=== PATIENT | female | born 1960 | race Caucasian/White ===

== ENCOUNTER 2021-06-30 14:51 | Inpatient (IN) | payer MEDICAID ==
[~2021-06-30] VITALS: Ht 175.3 cm; Wt 51.3 kg
[2021-06-30 15:02] VITALS: BP 107/65
[2021-06-30 15:33] LABS: ABSOLUTE BASOPHILS 0.1 thou/uL (0.0-0.2); ABSOLUTE LYMPHOCYTES 2.1 thou/uL (0.8-5.3); BASOPHILS 1.2 %; EOSINOPHILS 0.3 %; HEMATOCRIT 35.1 % (37.0-47.0); HEMOGLOBIN 12.9 gm/dL (12.0-15.0); LYMPHOCYTES 34.2 %; MCHC 36.7 g/dL (28.0-37.0); MCV 92.7 fL (80.0-100.0); MONOCYTES 15.7 %; MPV 6.6 fl. (7.2-11.1); NUCLEATED RBCS 0 /100WBC; PLATELET COUNT* 290 thou/uL (150-400); POLYS 48.6 %; RBC 3.78 mil/uL (4.20-5.00); RDW-CV 14.3 % (10.5-14.5); WBC 6.1 thou/uL (4.0-11.0)
[2021-06-30 15:44] LABS: CALCIUM 8.5 mg/dL (8.5-10.1); CREATININE 0.8 mg/dL (0.6-1.3)
[2021-06-30 15:46] LABS: POTASSIUM 2.2 mmol/L (3.5-5.1)
[2021-06-30 15:48] LABS: ALBUMIN 3.3 g/dL (3.4-5.0); TOTAL BILIRUBIN 0.4 mg/dL (<0.1-1.0); TOTAL PROTEIN 6.6 g/dL (6.4-8.2)
--- NOTE | 2021-06-30 16:13 | EKG ---
[place] [address] ELECTROCARDIOGRAM REPORT Name: STEPHANIE MARTINEZ Room: [facility]19 ADM IN [facility]#: [id number] Admission: 06/30/21 Attend Phys: Alberto Escobar, Discharge: Date of : 62 Date of Service: 06/30/21 1459 Report #: [id number] THIS REPORT FOR: //name// [facility] ED Test Date: 2021-06-30 Test Time: 14:59:11 Pat Name: STEPHANIE MARTINEZ Department: Room: [facility] Gender: F Learning And Development Coordinator: HENNY : 1960 Requested By: Moses Ballesteros Order Number: [id number] MD: Aki Jackson Measurements Intervals [place] Rate: 80 P: 63 LA: 184 QRS: -41 QRSD: 115 T: 78 QT: 434 QTc: 501 Interpretive Statements Sinus rhythm Nonspecific IVCD with LAD Anteroseptal infarct, age indeterminate Baseline wander in lead(s) V4 No previous ECG available for comparison Electronically Signed On 06-30-2021 16:13:19 CDT by Aki Jackson [email or web address] <ELECTRONICALLY SIGNED> By: Aki Jackson MD, [facility] 06/30/21 1613 1459 1459 Aki Jackson MD, [facility] /EPI
[2021-06-30 16:55] LABS: CALCIUM 7.8 mg/dL (8.5-10.1); CREATININE 0.6 mg/dL (0.6-1.3)
[2021-06-30 17:02] LABS: POTASSIUM 2.1 mmol/L (3.5-5.1)
[2021-06-30 19:47] LABS: CALCIUM 8.1 mg/dL (8.5-10.1); CREATININE 0.7 mg/dL (0.6-1.3)
[2021-06-30 19:53] LABS: POTASSIUM 2.6 mmol/L (3.5-5.1)
[2021-06-30 20:00] VITALS: BP 95/60
[2021-06-30 21:07] LABS: URINE BILIRUBIN NEGATIVE (Negative); URINE BLOOD NEGATIVE (Negative); URINE CLARITY CLEAR; URINE COLOR YELLOW; URINE GLUCOSE-RANDOM NEGATIVE (Negative); URINE KETONES NEGATIVE (Negative); URINE NITRITE-REFLEX NEGATIVE (Negative); URINE PROTEIN NEGATIVE (Negative); URINE SPECIFIC GRAVITY <= 1.005 (1.005-1.030); URINE UROBILINOGEN 0.2 E.U./dl (0.2-1.0)
[2021-06-30 21:09] LABS: URINE LEUKOCYTES-REFLEX 3+ (Negative)
[2021-06-30 21:15] LABS: URINE POTASSIUM-RANDOM 8.8 mmol/L
[2021-06-30 21:18] LABS: CASTS None Seen /LPF (None Seen); CRYSTALS None Seen /LPF (None Seen); SQUAMOUS 0-3 Few /LPF (0-3); URINE RBC 0-2 Rare /HPF (0-2)
[2021-07-01] VITALS (7 sets, daily range): BP systolic 114–137; BP diastolic 73–95
[2021-07-01 01:23] LABS: CALCIUM 8.1 mg/dL (8.5-10.1); CREATININE 0.9 mg/dL (0.6-1.3)
[2021-07-01 01:25] LABS: POTASSIUM 3.9 mmol/L (3.5-5.1)
[2021-07-01 01:29] LABS: ABSOLUTE EOSINOPHILS 0.1 thou/uL (0.0-0.7); ABSOLUTE LYMPHOCYTES 1.8 thou/uL (0.8-5.3); ABSOLUTE MONOCYTES 0.7 thou/uL (0.0-1.2); ABSOLUTE NEUTROPHILS 2.2 thou/uL (1.6-8.1); BASOPHILS 0.8 %; EOSINOPHILS 1.5 %; HEMATOCRIT 31.1 % (37.0-47.0); HEMOGLOBIN 11.4 gm/dL (12.0-15.0); LYMPHOCYTES 36.3 %; MCH 33.8 pg (26.0-34.0); MCHC 36.6 g/dL (28.0-37.0); MCV 92.6 fL (80.0-100.0); MONOCYTES 15.3 %; MPV 6.8 fl. (7.2-11.1); NUCLEATED RBCS 0 /100WBC; POLYS 46.1 %; RBC 3.36 mil/uL (4.20-5.00); WBC 4.9 thou/uL (4.0-11.0)
[2021-07-01 01:33] LABS: PLATELET COUNT* 200 thou/uL (150-400)
--- NOTE | 2021-07-01 04:00 | NUR ---
[facility] PROTOCOL STARTED FOR ALCOHOL WITHDRAW. SEE [facility] FLOWSHEET.
[2021-07-01] MEDS ORDERED: HYDROCODON-ACE1 EAC5 PO (14:41)
[2021-07-01 20:13] LABS: CALCIUM 8.6 mg/dL (8.5-10.1); CREATININE 0.8 mg/dL (0.6-1.3); POTASSIUM 3.9 mmol/L (3.5-5.1)
[2021-07-02 01:16] VITALS: BP 129/81
--- NOTE | 2021-07-02 04:45 | NUR ---
PT REFUSED AM LAB DRAW FROM TOP SCREW
--- NOTE | 2021-07-02 04:45 | NUR ---
PT SPENT SHIFT REQUESTING FOOD AND ATIVAN. SHE GETS UP ON HER OWN. SHE REFUSED AM LABS SO WE DO NOT HAVE CURRENT LABS. SHE IS ALERT AND ORIENTED, ROOM AIR, RECEIVED FLUIDS SCHEDULED. SHE ASKS FOR FOOD AND DRINK ON THE HOUR EVERY HOUR. WILL CONTINUE TO MONITOR.
[2021-07-02 04:57] VITALS: BP 146/99
[2021-07-02 07:57] LABS: ABSOLUTE EOSINOPHILS 0.1 thou/uL (0.0-0.7); ABSOLUTE LYMPHOCYTES 1.1 thou/uL (0.8-5.3); ABSOLUTE MONOCYTES 0.6 thou/uL (0.0-1.2); ABSOLUTE NEUTROPHILS 2.8 thou/uL (1.6-8.1); EOSINOPHILS 1.7 %; HEMOGLOBIN 11.3 gm/dL (12.0-15.0); LYMPHOCYTES 23.7 %; MCH 33.2 pg (26.0-34.0); MCHC 34.3 g/dL (28.0-37.0); MCV 96.8 fL (80.0-100.0); MONOCYTES 13.1 %; MPV 6.9 fl. (7.2-11.1); NUCLEATED RBCS 0 /100WBC; PLATELET COUNT* 187 thou/uL (150-400); POLYS 60.5 %; RDW-CV 14.5 % (10.5-14.5); WBC 4.6 thou/uL (4.0-11.0)
[2021-07-02] MEDS ORDERED: FOLIC ACID1 MG PO (08:05)
[2021-07-02] MEDS ORDERED: VITAMIN B-1100 M2 PO (08:05)
[2021-07-02 08:18] LABS: ALBUMIN 2.6 g/dL (3.4-5.0); CALCIUM 8.7 mg/dL (8.5-10.1); CREATININE 0.7 mg/dL (0.6-1.3); POTASSIUM 4.4 mmol/L (3.5-5.1); TOTAL BILIRUBIN 0.4 mg/dL (<0.1-1.0); TOTAL PROTEIN 5.7 g/dL (6.4-8.2)
[2021-07-02 08:36] VITALS: BP 140/90
[2021-07-02 12:00] VITALS: BP 136/83
--- NOTE | 2021-07-02 14:33 | NUR ---
Pt is A&O. Resides in a motel alone. Independent. No DME. No hx of HH or SNF. Hx of ETOH, CM offered resources, Pt states that she already has a CM in the community, Pt to speak with CM. Pt discharging to home today, no further needs.
--- NOTE | 2021-07-02 14:49 | NUR ---
ASSUMED PT CARE AT 0730. PT IS A&OX4. PT IS UP AD AMI. CONTINENT OF B&B. PT FREQUENTLY REQUESTING MULTIPLE CARTONS OF PUDDING, APPLESAUCE AND OTHER SNACK ITEMS. NS INFUSING AT 75ml PER HR. MEDICATIONS ADMINISTERED ORDERED. PT REFUSING SCD'S. NO EDEMA NOTED. PT VERBALIZES UNDERSTANDING OF SAFETY MEASURES.
--- NOTE | 2021-07-02 16:32 | NUR ---
NEW ORDER TO DISCHARGE PT TO HOME. IV DC'D AND HEART MONITOR REMOVED. ALL BELONGINGS WITH PT. TRANSPORTATION ARRANGED VIA CAB TO TRANSFER PT TO HOME. CAB NOTIFIED AND ENROUTE TO GET PT AT APPROX. 1700.
[2021-07-02 17:57] VITALS: BP 136/83
--- NOTE | 2021-07-04 13:57 | CON ---
[address] [address] CONSULTATION Name: LISA MARTINEZ Room: [address] IN M.R.#: [id number] Admission: 06/30/21 Attend Phys: Alberto Escobar MD Discharge: 07/02/21 Date of : 62 Report #: [id number] THIS REPORT FOR: cc: FARZANA - No family physician/PCP FAM - No family physician/PCP Dusty Gregorio MD ~ DATE OF CONSULTATION: 07/01/2021 REQUESTING PHYSICIAN: Alberto Escobar MD REASON FOR CONSULTATION: Hyponatremia and hypokalemia. HISTORY OF PRESENT ILLNESS: The patient is a 61-year-old female with medical history significant for alcoholism. She presents to the hospital yesterday on 06/30 with symptoms of alcohol intoxication. She was found to be hyponatremic and hypokalemic. Her serum sodium was 113, potassium was 2.2. Is very malnourished, is given fluids. Potassium was replaced and it is improving. Sodium improving appropriately. It is up to 122, suspect 9 points correction over 24 hours and potassium is improving as well; it is 3.9 now. Her BUN and creatinine are normal. She had some elevated blood sugar and her lipase was normal. Her CK is normal. Her urinalysis showed some symptoms of UTI, but she is asymptomatic. SOCIAL HISTORY: Positive for alcoholism. FAMILY HISTORY: Unknown. MEDICATIONS: Prior to admission, unknown. REVIEW OF SYSTEMS: She is much better now, wants to be fed and she wants us to take care of her cat. PHYSICAL EXAMINATION: GENERAL: Awake, alert, oriented. VITAL SIGNS: Blood pressure 114/73, heart rate 81, afebrile. HEENT: Pupils are round. NECK: Supple. LUNGS: Clear. CARDIOVASCULAR: Regular rate. ABDOMEN: Soft. LOWER EXTREMITIES: No edema. ASSESSMENT: 1. Alcoholism. 2[place] [address] CONSULTATION Name: LISA MARTINEZ Room: [address]#: [id number] Admission: 06/30/21 Attend Phys: Alberto Escobar MD Discharge: 07/02/21 Date of : 62 Report #: [id number] 3. Hyponatremia due to poor solute intake. 4. Hypokalemia due to poor intake, resolved. PLAN: Continue normal saline. Follow labs. Discussed with Dr. Escobar. I will sign off. <ELECTRONICALLY SIGNED> By: Dusty Gregorio MD 07/04/21 1357 1217 [id number] Gregorio MD /nt
== END 2021-07-02 18:25 | disposition home or self-care (01) | DRG 896 ==
LOC: M.ERS 14:51 → M.TBA-ER 16:01 → M.2W 07-01 13:14
PROVIDERS: Family Medicine; ADMIT Internal Medicine; ATTEND Internal Medicine
DX: F10.229 Alcohol dependence with intoxication, unspecified (principal); G92 Toxic encephalopathy; E87.1 Hypo-osmolality and hyponatremia; Z20.822 Contact with and (suspected) exposure to COVID-19; E46 Unspecified protein-calorie malnutrition; E87.6 Hypokalemia; E44.0 Moderate protein-calorie malnutrition; Z68.1 Body mass index [BMI] 19.9 or less, adult